=== PATIENT | female | born 1965 | race Caucasian/White ===

== ENCOUNTER 2016-04-03 09:34 | Day surgery (SDC) | payer MEDICARE, MEDICAID ==
[~2016-04-03 09:34] MED LIST: AMOXIL500 MG PO; BACTRIM DS 8001 TAB PO; CYMBALTA30 MG PO; ENABLEX15 MG PO; FIORICET 325 MG1 TAB PO; LORTAB 5/500 501 TAB PO; NAPRELAN500 MG PO; TESSALON PERLE100 MG PO; TRAZODONE100 MG PO; ULTRACET 325 MG1 TAB PO; VIBRAMYCIN 100100 MG PO; VISTARIL50 MG PO; VOLTAREN75 MG PO
--- NOTE | 2016-04-03 12:19 | Operative Note ---
Surgeon/Diagnoses Surgeon/Hand Zipper Trimmer(s) Date of procedure: 04/03/16 Surgeon: MD Stacey Schneider Diagnoses Pre-op diagnosis: LEFT breast cyst (inflamed) Post-op diagnosis Same Procedure Procedure Procedure: Excision of inflamed LEFT breast cyst (2 cm) Indications: LORIN COLLINS is a 50 year-old Female with a history of inflamed 2 cm cyst of the medial LEFT breast. Findings: Inflamed cystic lesion excised in toto and passed off for pathologic evaluation. Cyst into the deep subcutaneous tissue, but not to fascial margin. Procedure Description: After informed consent was obtained, the patient was taken to the procedure room. Her LEFT breast was prepped and draped in a sterile fashion. After infiltration with local anesthetic a curvilinear incision was made over the cystic lesion. The deep subcu cutaneous tissue was sharply dissected. A combination of sharp dissection and electrocautery was utilized to achieve excision around the entire 2 cm cystic lesion that was within the deep subcutaneous fat, but not encroaching the fascial margin. Once the lesion was passed off for pathologic evaluation, electrocautery was utilized to achieve hemostasis and to elevate medial and lateral tissue flaps in order to accommodate a closure with less tension. Interrupted 6-0 nylon was then utilized to reapproximate the skin. Antibiotic ointment and a sterile dressing was applied and the patient was transferred to recovery. EBL (ml): 15 Anesthesia: 1 percent lidocaine Complications: No immediate Specimens: Inflamed LEFT breast cyst Disposition Disposition: Stable to recovery from where she will be discharged home. She will follow-up next week. at 1218
[2016-04-03 13:38] VITALS: BP 140/90
== END 2016-04-03 12:30 | disposition home or self-care (01) ==
LOC: SDC 09:34
PROVIDERS: Surgery
PROC: 0HBU0ZZ Excision of Left Breast, Open Approach (ICD-10-PCS; principal; 2016-04-03 10:45)
DX: N60.02 Solitary cyst of left breast (principal)